=== PATIENT | male | born 1945 | race Caucasian/White ===

== ENCOUNTER → 2017-02-25 | Outpatient (CLI) | payer MEDICARE, OTHER ==
--- NOTE | ~2017-02-25 | CR63 ---
[facility] A Service of [facility] & [facility] RADIOLOGY TEXT RESULTS PATIENT: REHANA DURÁN JR LOCATION: [facility] : 43 UNIT #: [id number] AGE: [address]: Annkia Lawrence MD SEX: M ORDER DR: [id number] [facility] [address] [place], [place] [address] [id number] O MR#: [id number] Acc #: [id number] NAME: REHANA DURÁN : 1945 SEX: M STUDY DATE/TIME: 02/25/2017 14:24 UNIT: [facility] ROOM: STUDY DESCRIPTION: CR Chest 2 View Attending Physician: Annika Lawrence M.D. Referring Physician: Annika Lawrence M.D. Ordering Physician: Annika Lawrence M.D. Primary Care Physician: Annika Lawrence M.D. 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 Evaluate for evidence of tuberculosis. FINDINGS A PA view of the chest was obtained. The heart size and vascularity are normal. The patient's head is obscuring some of the apical regions. The lateral view does not show any infiltrates. The bones are normal and the heart size is normal. IMPRESSION 1. No active disease is visible. 2. The patient's chin is obscuring some of the apical regions of both sides of the chest. Dictated by... Giovanni Alcazar M.D. THIS IS AN ELECTRONICALLY VERIFIED REPORT Giovanni Alcazar M.D. at 02/26/2017 7:08 AM OSORIO/laila TD: 02/26/2017 01:35 JOB #: [id number] MEDICAL IMAGING REPORT Page 1 of 1 COPY
== END | disposition home or self-care (01) ==
LOC: CRAD 13:51
DX: R76.11 Nonspecific reaction to tuberculin skin test without active tuberculosis (principal)
CPT/HCPCS: 71020